=== PATIENT | female | born 1950 | race Caucasian/White ===

== ENCOUNTER → 2017-02-14 | Outpatient (CLI) | payer MEDICARE, OTHER ==
[~2017-02-14] MED LIST: ASPIRIN PO; CALCIUM 500 + D1 TAB PO; CERTAGEN PO; OMEGA; VITAMIN B 6 DAILY
--- NOTE | ~2017-02-14 | MY28 ---
[facility] A Service of [facility] RADIOLOGY TEXT RESULTS PATIENT: SARANYA YAO LOCATION: [facility] : 48 UNIT #: [id number] AGE: [address]: Sherita Coleman MD SEX: F ORDER DR: [id number] [facility] [address] [place], [place] [address] [id number] O MR#: [id number] Acc #: [id number] NAME: SARANYA YAO : 1950 SEX: F STUDY DATE/TIME: 02/14/2017 9:58 UNIT: [facility] ROOM: STUDY DESCRIPTION: MY YONATAN SCREEN W/ CAD UNI RT Attending Physician: Sherita Coleman M.D. Ordering Physician: Sherita Coleman M.D. Primary Care Physician: Sherita Coleman M.D. MEDICAL IMAGING REPORT This report is preliminary unless electronic signature is present EXAM Unilateral right digital screening mammogram 02/14/2017, [facility] HISTORY 66-year-old woman status post left modified radical mastectomy 26 years ago. Personal and family history, mother. Right breast lift. Annual screen. COMPARISON Mammograms date to 12/25/2007 with most recent 02/12/2016 Digital imaging of the right breast was completed utilizing screening protocol. Review includes FDA-approved CAD device. Breast parenchyma is partially fatty replaced and stable. There is no interval occurring breast mass. There are no suspicious microcalcifications and no architectural deformity. IMPRESSION Negative unilateral right mammogram. Status post left mastectomy. Annual screening recommended. Patient's over the age of 40 are entered into a reminder system with target due date for the next mammogram. A result letter will be sent to the patient. BIRADS: 1 Negative Dictated by... Yovani Davis M.D. THIS IS AN ELECTRONICALLY VERIFIED REPORT [facility] A Service of [facility] RADIOLOGY TEXT RESULTS PATIENT: SARANYA YAO LOCATION: [facility] : 48 UNIT #: [id number] AGE: [address]: Sherita Coleman MD SEX: F ORDER DR: Yovani Davis M.D. at 02/15/2017 8:05 AM JBB/katty TD: 02/14/2017 18:25 JOB #: [id number] MEDICAL IMAGING REPORT Page 1 of 1 COPY
== END | disposition home or self-care (01) ==
LOC: CWCC 09:28
DX: Z12.31 Encounter for screening mammogram for malignant neoplasm of breast (principal); Z85.3 Personal history of malignant neoplasm of breast; Z90.12 Acquired absence of left breast and nipple; Z80.3 Family history of malignant neoplasm of breast
CPT/HCPCS: G0202